=== PATIENT | female | born 1995 | race Caucasian/White ===

== ENCOUNTER 2017-02-21 23:02 | Observation (INO) | payer MEDICAID ==
[~2017-02-21] VITALS: Ht 149.9 cm; Wt 73.5 kg
[2017-02-21] MEDS ORDERED: PREN-88 PO (23:22)
[2017-02-21] MEDS ORDERED: ACETAMINOPHEN 500MG TABLET PO NR (23:45)
== END 2017-02-22 01:56 | disposition home or self-care (01) ==
LOC: L&D 23:02
PROVIDERS: ADMIT Obstetrics & Gynecology; ATTEND Obstetrics & Gynecology
DX: O26.892 Other specified pregnancy related conditions, second trimester (principal); R10.9 Unspecified abdominal pain; Z3A.25 25 weeks gestation of pregnancy
CPT/HCPCS: 76805; 99281; G0378